=== PATIENT | female | born 1985 | race Caucasian/White ===

== ENCOUNTER 2016-07-09 10:36 | Emergency (ER) | payer OTHER ==
[~2016-07-09] VITALS: Ht 165.1 cm; Wt 52.7 kg
[~2016-07-09 10:36] MED LIST: HYDR50CA3 PO; IBUP-1827 PO; LEVO750T9 PO; ONDA4TAB12 PO; OXYC5TAB72 PO; SERT100T9 PO
[2016-07-09 10:39] VITALS: BP 124/70; PULSE 91; RESP 18; O2SAT 100
--- NOTE | 2016-07-09 10:55 | ED.REPORT ---
HPI-Preg Under 20 Weeks Date of Service Jul 09, 2016 ED Provider: Jose Maria Bettencourt DO Patient is a 30 year old female who presents to the ED requesting a test. She is currently on 2 mg of Suboxone a day and has been trying to withdraw. She is concerned about complications and drug withdrawal. She was on 2 mg of methadone for 8 years, transitioned to Suboxone, and has been trying to withdraw. She is due to see Dr. Valencia on the and she requests an earlier appointment. Nursing Notes Stated Complaint: CHECK Chief Complaint: General Complaint Nursing Notes Reviewed: Yes Allergies: Coded Allergies: levofloxacin (Verified Allergy, Severe, 07/09/16) Scheduled Levofloxacin (Levaquin) 750 Mg Tablet 750 MG PO DAILY Sertraline HCl (Sertraline) 100 Mg Tablet 100 MG PO DAILY Scheduled PRN Hydroxyzine Pamoate (HydrOXYzine Pamoate) 50 Mg Capsule 50 MG PO TID PRN PRN For Anxiety Ibuprofen (Ibuprofen) 600 Mg Tablet 600 MG PO QID PRN PRN For Pain Ondansetron ODT (Ondansetron ODT) 4 Mg Tab.rapdis 4 MG PO TID PRN PRN For Nausea oxyCODONE (oxyCODONE) 5 Mg Tablet 10 MG PO Q4H PRN PRN For Pain General Time Seen by Provider: 10:48 Chief Complaint Hx Obtained From: Patient Arrived By: Walk-in Onset Occurred: Just prior to arrival Symptom Duration: Since onset Severity: Current: No pain currently Recent Healthcare: Recent doctor visit Similar Sx Previous: Yes Past Medical History Past Medical History Notes: Seen in [facility] ED 08/28/2015 Seen at [facility] ED 08/27/2015 (Suboxone being held for acute facial infection, given oxycodone instead) Past Medical History Facial cellulitis possible odontogenic infection on clindamycin 07/2015 On Suboxone therapy Anxiety Past Surgical History Denies Smoking History Current Every Day Smoker Social History Alcohol Use: "Social" Drug Use: In recovery Ambulatory Status Independent Review of Systems Female: Reports: Complete sys rev & neg: except as marked. Physical Exam Initial Vital Signs Vital Signs (First) Date Time Temp Pulse Resp B/P Pulse Ox O2 Delivery O2 Flow Rate FiO2 07/09/16 10:39 36.3 91 18 124/70 100 Room Air Initial VS: Reviewed Head / Eyes: Atraumatic, Normocephalic, PERRL ENT: Mucous membranes moist, Conjunctiva normal, No scleral icterus Neck: Supple, Non-tender, Full range of motion Respiratory: Breath sounds normal, Clear to auscultation, No respiratory distress Cardiovascular: Regular rate & rhythm, Heart sounds normal, Intact distal pulses Extremities: Vascular intact, Neuro intact, No swelling, No tenderness Skin: Warm, Dry, No cyanosis Neurologic: Alert, Oriented, Nonfocal Psychiatric: Mood/affect normal, Behavior normal, Normal thought content General/Constitutional: Awake, Alert, No acute distress, Well appearing, Well developed, Cooperative, Not toxic appearing Abdomen: Atraumatic, Soft, Non-tender, McBurney's non-tender, No guarding, No rebound Female Genitourinary: Atraumatic : No bleeding, No discharge positive test Interpretation & Diagnostics Lab Results Interpretation Test 07/09/16 10:59 Hold Urine Received (Received) Re-Eval/Medical Decision Med Decision/Clinical Course Patient's [id number] urine today was positive. She has no other medical concerns today. Her main discussion point during our conversation was regarding managing her Suboxone while . She was recommended to discuss this with her Suboxone provider. Return precautions given. Re-Evaluation/Progress : Time of Eval: 11:01 Re-Evaluation/Progress Note: Pt rechecked. Informed pt of positive test and plan for treatment. Pt understands and agrees with plan. F/U and RTER warnings given. All questions addressed. Counseled Regarding: Diagnosis, Lab results, Need for follow-up, When/why to return to ED Discharge & Departure Primary Impression: Early stage of Disposition: Home Discharge Condition All VS Reviewed: Yes Condition: Stable Additional Instructions: Your urine test in the ER today is positive. It appears that you are in the early stages of . Follow up with your DESK MONITOR and your Suboxone provider. Return to the ER as needed if you have any other emergent concerns Referrals: Pearl Álvarez MD (PCP) (Family) Scribe Attestation Portion of this note were transcribed by Brynn Hale. I, Dr. Bettencourt, personally performed the history, physical exam, and medical decision-making: I reviewed and confirmed the accuracy for the information in the transcribed note. Signed by: katelin Houser, 07/09/16 1130 copies to: Pearl Álvarez MD, Timothy S DO Jul 09, 2016 10:55 BRYNN HALE Jul 09, 2016 11:09
== END 2016-07-09 11:14 | disposition home or self-care (01) ==
LOC: SED 10:36
DX: Z32.01 Encounter for pregnancy test, result positive (principal); F17.200 Nicotine dependence, unspecified, uncomplicated; Z79.891 Long term (current) use of opiate analgesic; Z88.1 Allergy status to other antibiotic agents